=== PATIENT | female | born 1970 | race Caucasian/White ===

== ENCOUNTER 2018-03-11 19:18 | Emergency (ER) | payer MEDICARE, OTHER ==
--- NOTE | 2018-03-11 19:27 | ED Physician Documentation ---
General Adult - HISTORIAN Historian: patient - HPI Stated Complaint: sore on upper leg Chief Complaint: Skin Rash Onset: days ago (2) Timing: still present Severity: mild Further Comments: yes (she reports a few days ago she had some pain and redness and this am she woke to increasing pain and swelling. No drainge. No fever. No other rash) - ROS CONST: no problems MS/SKIN/LYMPH: rash - PAST HX Past History: other (hypothyroidism - psych meds (she did not want to know her dx) ) Surgeries/Procedures: BTL Allergies/Adverse Reactions: Allergies Allergy/AdvReac Type Severity Reaction Status Date / Time Penicillins Allergy Verified 03/11/18 20:19 Home Medications: Ambulatory Orders Medication Instructions Recorded Benztropine Mesylate [Cogentin] 1 tab PO BID 03/11/18 Divalproex Sodium [Depakote] 1 tab PO DAILY 03/11/18 Divalproex Sodium [Depakote] 2 tab PO HS 03/11/18 Levothyroxine Sodium [Synthroid] 1 tab PO DAILY 03/11/18 - SOCIAL HX Smoking History: cigarettes - FAMILY HX Family History: No - REVIEWED ASSESSMENTS Nursing Assessment Reviewed: Yes Vitals Reviewed: Yes General Adult Physical Exam - PHYSICAL EXAM GENERAL APPEARANCE: no distress EENT: eye inspection normal NECK: normal inspection RESPIRATORY: no resp distress, chest non-tender, breath sounds normal CVS: reg rate & rhythm, heart sounds normal, equal pulses, no murmur ABDOMEN: soft, no distension SKIN: warm/dry, other (area right upper leg/groin abscess area on groin fold raised (red) not firm . no drainge under skin noted ) EXTREMITIES: non-tender, normal range of motion, no evidence of injury NEURO: oriented X3, CN's nml as tested, motor nml, sensation nml, mood/affect nml Discharge Clincal Impression: Abscess Referrals: Primary Doctor,No [Primary Care Provider] - 2 Days Comments: 1. Bactrim DS take 1 by mouth twice per day x 10 days 2. Warm compress to the area 3. Keep area clean and dry 4. DO NOT PICK AT THE AREA 5. Return for increased redness and pain or fever 6. See PCP IN 2-4 days Condition: Stable Disposition: 01 HOME, SELF-CARE Decision to Admit: NO Date of Decison to Admit: 03/11/18 Decision Time: 19:45
[2018-03-11 19:41] VITALS: BP 113/66
[2018-03-11] MEDS ORDERED: SULFAMETHOXAZOLE/TRIMETHOPRIM 1 EACH TABLET PO ONE (19:47)
== END 2018-03-11 20:00 | disposition home or self-care (01) ==
LOC: ED 19:18
DX: L02.415 Cutaneous abscess of right lower limb (principal)
CPT/HCPCS: 99283

== ENCOUNTER 2018-04-01 14:36 | Outpatient (CLI) | payer MEDICARE, OTHER ==
[2018-04-01 15:36] LABS: eGFR (Non-African) > 60
== END 2018-04-01 14:38 ==
LOC: LAB 14:36
PROVIDERS: ATTEND Physician Assistant
DX: Z00.00 Encounter for general adult medical examination without abnormal findings (principal); Z13.6 Encounter for screening for cardiovascular disorders; E03.9 Hypothyroidism, unspecified
CPT/HCPCS: 36415; 80053; 80061; 84439; 84443; 84481

== ENCOUNTER 2018-07-12 16:57 | Emergency (ER) | payer MEDICARE, OTHER ==
--- NOTE | 2018-07-12 17:13 | ED Physician Documentation ---
General Adult - HISTORIAN Historian: patient - HPI Stated Complaint: vaginal bleeding Chief Complaint: Female Urogenital Problems Onset: days ago (3) Timing: still present Severity: mild Further Comments: yes (She states she has not had a period in 6 years and noticed blood in the toliet on three occasions the last few days. She decided to wear a tampon yesterday and reports " a little blood on it" She states she is not sure if the blood is vaginal. Denies any rectal bleeding. She has no pain with sex. She has not had a PAP "in years" > Denies any abdominal pain or trauma) - ROS CONST: no problems GI/: none MS/SKIN/LYMPH: none NEURO/PSYCH: denies: headache, fainting, dizziness, tingling, numbness, difficulty walking, difficulty with speech - PAST HX Past History: other (bipolar ) Immunizations: UTD Allergies/Adverse Reactions: Allergies Allergy/AdvReac Type Severity Reaction Status Date / Time Penicillins Allergy Verified 07/12/18 17:41 Home Medications: Ambulatory Orders Medication Instructions Recorded Benztropine Mesylate [Cogentin] 1 tab PO BID 03/11/18 Divalproex Sodium [Depakote] 1 tab PO DAILY 03/11/18 Divalproex Sodium [Depakote] 2 tab PO HS 03/11/18 - SOCIAL HX Smoking History: cigarettes Alcohol Use: none Drug Use: none - FAMILY HX Family History: No - VITAL SIGNS Vital Signs: Vital Signs Temp Pulse Resp BP Pulse Ox 113/66 03/11/18 20:00 - REVIEWED ASSESSMENTS Nursing Assessment Reviewed: Yes Vitals Reviewed: Yes Progress - Progress Progress: 1800: small amount of blood on tip of tampon. No pain with exam. Discussed will do pelvic exam - she is agreeable DG 1830: Exam revealed blood in vaginal vault. She is aware. Denies any pain. General Adult Physical Exam - PHYSICAL EXAM GENERAL APPEARANCE: no distress NECK: normal inspection RESPIRATORY: no resp distress, chest non-tender, breath sounds normal CVS: reg rate & rhythm, heart sounds normal ABDOMEN: soft, normal bowel sounds, no distension, non-tender, other (vaginal exam reveals blood in vaginal vault . Cervix shows no abnormalities. No pain with exam tolerated well ) BACK: normal inspection, no CVA tenderness SKIN: warm/dry, normal color EXTREMITIES: non-tender, normal range of motion, no evidence of injury, no edema NEURO: oriented X3 Discharge Clincal Impression: Vaginal bleeding Referrals: Noris Vences PA [Primary Care Provider] - 2 Days Comments: 1. Follow up with PCP SATURDAY 2. Return to ER for any bleeding through tampon or pad in one hour or pain - or any other concerns Condition: Stable Disposition: 01 HOME, SELF-CARE Decision to Admit: NO Date of Decison to Admit: 07/12/18 Decision Time: 20:30
[2018-07-12] MEDS ORDERED: 0.9 % SODIUM CHLORIDE 1,000 ML IV ONE (17:42)
[2018-07-12 18:20] LABS: BASOPHILS % 0.7 (0.0-1.5); EOSINOPHILS % 5.5 % (0.0-6.8); MEAN CORPUSCULAR HEMOGLOBIN 30.1 pg (28.0-34.0); MONOCYTES % 7.1 % (0.0-11.0)
[2018-07-12 18:21] LABS: NEUTROPHILS # 3.3 # k/uL (1.4-7.7)
[2018-07-12 18:42] LABS: eGFR (Non-African) > 60
[2018-07-12 20:35] VITALS: BP 144/70
[2018-07-13 10:47] LABS: APPEARANCE,URINE CLEAR (CLEAR); COLOR,URINE YELLOW (YELLOW); OCCULT BLOOD,URINE 2+ (NEGATIVE); UROBILINOGEN URINE 0.2 Eu (0.2-1.0)
[2018-07-13 10:51] LABS: URINE HCG NEGATIVE (NEGATIVE)
[2018-07-14 14:22] LABS: CANDIDA GLABRATA* NEGATIVE (NEGATIVE)
== END 2018-07-12 20:30 | disposition home or self-care (01) ==
LOC: ED 16:57
DX: N93.9 Abnormal uterine and vaginal bleeding, unspecified (principal)
CPT/HCPCS: 36415; 80053; 81002; 81025; 85025; 87481; 87511; 87798; 99282; 99283; J7030; S1016

== ENCOUNTER 2018-08-19 13:26 | Outpatient (CLI) | payer MEDICARE, OTHER | END 2018-08-19 13:35 | LOC: LABRHC 13:26 | PROVIDERS: ATTEND Nurse Practitioner Family | DX: Z01.419 Encounter for gynecological examination (general) (routine) without abnormal findings (principal) | CPT/HCPCS: 88148; G0143 ==